=== PATIENT | female | born 1945 | race Caucasian/White ===

== ENCOUNTER → 2017-02-15 09:22 | Outpatient (CLI) | payer MEDICARE, MEDICAID ==
[2016-01-06 13:39] VITALS: BMI 31.6
[~2017-02-15 09:22] MED LIST: ALBUTEROL2.5 MG/3 M INH; BACLOFEN10 MG PO; CELEXA20 MG PO; CYCLOBENZAPRINE10 MG PO; DESERYL100 MG PO; FLUTICASONE PRO16 GM NASAL; HYDROCODONE-APA1 TAB PO; LEVAQUIN500 MG PO; LIPITOR20 MG PO; LYRICA100 MG PO; MUCINEX600 MG PO; PRILOSEC20 MG PO; PROAIR HFA8.5 GM INH; REQUIP4 MG PO; SINGULAIR10 MG PO; SYMBICORT 80-10.2 GM INH; TESSALON PERLE100 MG PO; TRAZODONE HCL50 MG PO; XANAX0.25 MG PO
== END | disposition home or self-care (01) ==
LOC: D.RAD 09:22
DX: R13.10 Dysphagia, unspecified (principal)

== ENCOUNTER 2017-02-18 14:58 | Observation (INO) | payer MEDICARE, MEDICAID ==
[~2017-02-18] VITALS: Ht 162.6 cm; Wt 88.9 kg
--- NOTE | ~2017-02-18 | OP ---
PATIENT NAME: LUI FISHER MEDICAL RECORD: [id number] :41 LOCATION:D.M2 D.2118 ADMISSION DATE:02/18/17 SURGEON: АЛЕКСАНДР YEUNG MD DATE OF OPERATION: 02/19/2017 PROCEDURE: Left heart catheterization, selective coronary angiography, right femoral artery approach. CATHETERS: A 5-Occitan sheath, 5/4 left and right Romain, 5/4 pig. The procedure was well tolerated. The patient returned to the peterson, sheath was removed. ExoSeal device placed. FINDINGS: Left ventriculography in the 30-degree WONG view. Normal wall motion, normal systolic function. CORONARY ANATOMY: LEFT MAIN: Left main is free of disease. LAD: Free of disease in the diagonal system. CIRCUMFLEX: Free of disease in the marginal system. RIGHT CORONARY ARTERY: Dominant artery, gives rise to PDA, free of disease. IMPRESSION: Normal systolic function, normal coronary anatomy, noncardiac cause of symptomology. TRANSINT:[id number] Voice Confirmation ID: [id number] DOCUMENT ID: [id number] АЛЕКСАНДР YEUNG MD CC: [id number] DICTATION DATE: 02/19/17 [address] MAKER: 02/19/171956 DIS IN 02/19/17 [facility] [address] [place] [address]
--- NOTE | ~2017-02-18 | HEMODYNAMI ---
PATIENT:LUI FISHER MEDICAL RECORD: [id number] : 41 [facility] [id number] ADMISSION DATE: 02/18/17 Generatedon:02/19/201710:06 Patient name: LUI FISHER Patient #: [id number] SSN: : 1945 Date of study: 02/19/2017 Page: Of Hemodynamic Procedure Report Patient Data Patient Demographics Procedure consent was obtained First Name: LUI Gender: Female Last Name: PHILLIP : 1945 Middle Initial: ANUP Age: 71 year(s) Patient #: [id number] Race: Unknown Additional ID: [id number] Contact details [address]: [address] [place] [address] State: [place] City: [place] Zip code: [address] Admission Admission Data Admission Date: 02/18/2017 Admission Time: 17:36 Room #: D.2118 Height (in.): 64 BSA: 1.94 (m2) Height (cm.): 162.56 BMI: 33.72 (kg/m2) Weight (lbs.): 196.43 Weight (kg.): 89.1 Lab Results Lab Result Date: 02/19/2017 Lab Result Time: 0:00 Biochemistry Name Units Result Min Max BUN mg/dl 9 --(*---)-- 7 18 Creatinine mg/dl 0.8 --(-*--)-- 0.6 1.3 CBC Name Units Result Min Max Hemoglobin g/dl 12.6 -*(----)-- 13.5 17.5 Procedure Procedure Types Cath Procedure Diagnostic Procedure [facility] w/Coronaries Miscellaneous Procedures Moderate Sedation up to 15 minutes Procedure Description Procedure Date Procedure Date: 02/19/2017 Procedure Start Time: 9:54 Procedure End Time: 10:05 Procedure Staff Name Function Judah Waters MD Performing Physician Yanelis Berkowitz RN Nurse Guy Quevedo RT Monitor Robert Comer RT Scrub Procedure Data Cath Procedure Fluoroscopy Diagnostic fluoroscopy Total fluoroscopy Time: 1.1 time: 1.1 min min Diagnostic fluoroscopy Total fluoroscopy dose: 352 dose: 352 mGy mGy Contrast Material Contrast Material Type Amount (ml) Isovue 300 57 Entry Location Entry Primary Successful Side Size Upsize Upsize Entry Closure Succes sful Closure Location (Fr) 1 (Fr) 2 (Fr) Remarks Device Remarks Femoral Right 5 Fr Exoseal artery Estimated blood loss: 10 ml Diagnostic catheters Device Type Used For End Catheter Placement Cordis 5Fr JL 4.0 Procedure Catheter (MP) Cordis 5Fr 3DRC Catheter Procedure (MP) Cordis 5Fr Pigtail Procedure Catheter (MP) Procedure Complications No complications Procedure Medications Medication Administration Route Dosage Oxygen NC 2 l/min Heparin Flush Bag added to field 2 bags (1000units/500ml NS) Lidocaine 2% added to field 20 Versed I.V. 1 mg Fentanyl I.V. 50 mcg Versed I.V. 0.5 mg Fentanyl I.V. 25 mcg Fentanyl I.V. 25 mcg Versed I.V. 0.5 mg Hemodynamics Rest BSA: 1.94 (m2) HGB: 12.6 (g/dl) O2 Consumption: Estimated: 191.25 (ml/min) O2 Co nsumption indexed: Estimated:98.58 (ml/min/m) Heart Rate: 89 (bpm) Pressure Samples Time Site Value (mmHg) Purpose Heart Use Rate(bpm) 9:56 AO 105/58(78) Snapshot 84 10:00 LV 113/-3,14 Snapshot 83 10:01 AO 110/58(81) Pullback 84 10:01 LV 79/14,22 Pullback 84 Gradients Valve Time Site 1 Site 2 Mean SEP/DFP Peak To Heart Use (mmHg) (sec/min) Peak Rate (mmHg) (bpm) Aortic 10:01 LV AO 0 84 79/14,22 110/58(81) Calculations Valve P-P Mean Valve Index Valve Source Name Gradient Area Flow (cm2) Aortic 0 0 Snapshots Pre Cath Intra NCS Post Cath Vital Signs Time Heart Resp SPO2 etCO2 [id number] NIBP (mmHg) Rhythm Pain Sedation Rate (ipm) (%) (mmHg) (mmHg) Status Level (bpm) 9:41:58 91 23 97 0 0 142/61(106) NSR 0 (11) 10(A) , No pain 9:46:12 88 23 97 0 0 139/66(105) NSR 0 (11) 10(A) , No pain 9:50:32 85 20 96 0 0 127/62(91) NSR 0 (11) 10(A) , No pain 9:54:53 85 16 94 0 0 116/64(99) NSR 0 (11) 10(A) , No pain 9:59:06 84 19 97 0 0 123/62(86) NSR 0 (11) 10(A) , No pain 10:03:18 83 16 95 0 0 111/63(83) NSR 0 (11) 10(A) , No pain Medications Time Medication Route Dose Verified Delivered Reason Notes Effect iveness by by 9:44:41 Oxygen NC 2 Judah Yanelis Per l/min NyssaSuraj Berkowitz RN physician 9:45:43 Heparin Flush added 2 Judah Judah used for Bag to bags [facility] procedure (1000units/500ml field MD ADRIAN NS) 9:45:52 Lidocaine 2% added 20ml Judah Judah used for to vial [facility] procedure field MD ADRIAN 9:46:01 Versed I.V. 1 mg Judah Yanelis for JtLoren Berkowitz RN sedation 9:46:07 Fentanyl I.V. 50 Judah Yanelis for mcg JtSuraj Berkowitz RN sedation 9:49:06 Versed I.V. 0.5 Judah Yanelis for mg [facility] Suraj Berkowitz RN sedation 9:49:11 Fentanyl I.V. 25 Judah Yanelis for mcg NyssaSuraj Berkowitz RN sedation 9:53:03 Fentanyl I.V. 25 Judah Yanelis for mcg NyssaSuraj Berkowitz RN sedation 9:57:14 Versed I.V. 0.5 Judah Yanelis for mg Nyssa Sho LOJA sedation Procedure Log Time Note 9:00:07 Robert WILSON(R) sent for patient. Start room use. 9:14:16 Time tracking: Regular hours 9:14:20 Plan of Care:Hemodynamics will remain stable., Cardiac rhythm will remain stable., Comfort level will be maintained., Respiratory function will remain adequate., Patient/ family verbilizes understanding of procedure., Procedure tolerated without complication., Recovers from procedure without complications.. 9:25:29 Patient Height : 64 cm 9:25:36 Patient Weight : 196.43 kg 9:27:05 Lab Result : Hemoglobin 12.6 g/dl 9:27:05 Lab Result : Creatinine 0.8 mg/dl 9:27:05 Lab Result : BUN 9 mg/dl 9:31:28 Patient received from PCU to CCL 1 Alert and oriented. Tansferred to table in Supine position. 9:31:30 Warm blankets applied, and saad hugger turned on for patient comfort. 9:31:30 Correct patient and procedure confirmed by team. 9:31:31 Signed procedure consent form obtained from patient. 9:31:32 ECG and BP/O2 sat monitors applied to patient. 9:40:44 Vital chart was started 9:40:45 Baseline sample Acquired. 9:40:49 Rhythm: sinus rhythm 9:40:50 Full Disclosure recording started 9:41:02 H&P Date Dictated: 02/19/2017 Within 30 days and on chart.. 9:41:03 Pre-procedure instructions explained to patient. 9:41:04 Pre-op teaching completed and patient verbalized understanding. 9:41:06 Family in waiting room. 9:41:07 Patient NPO since Midnight. 9:41:09 Is the patient allergic to Iodine/contrast media? No. 9:41:12 Is patient on blood thinner?No 9:41:14 Patient diabetic? No. 9:41:17 Patient not . Patient is over age 55. 9:41:19 Previous problem with sedation/anesthesia? No ? 9:41:20 Snore? Yes 9:41:21 Sleep apnea? No 9:41:22 Deviated septum? No 9:41:23 Opens mouth fully? Yes 9:41:24 Sticks out tongue? Yes 9:41:28 Airway obstruction? Yes COPD 9:41:33 Dentures? Yes OUT 9:41:37 Physician opted for femoral access. 9:41:37 Pre procedure: right dorsailis pedis pulse 1+ Palpable, but thready & weak; easily obliterated 9:41:39 Patient pain scale 0/10 ?. 9:41:43 IV patent on arrival in left forearm with 0.9% NaCl at KVO. 9:41:45 Lab results completed and on chart. 9:41:48 Pt's abdomen was taped back for groin access. 9:41:49 Right groin area was prepped with chlora-prep and draped in sterile fashion 9:41:50 Alarms reviewed by R. N. 9:41:51 Sharps counted by scrub and verified by R.N. 9:43:43 Use device set Femoral Dx 9:43:46 Tegaderm 4 x 4 opened to sterile field. 9:43:47 Acist Hand Control opened to sterile field. 9:43:48 Acist Manifold opened to sterile field. 9:43:50 Acist Syringe opened to sterile field. 9:43:50 Bag Decanter opened to sterile field. 9:43:51 Medline Cath Pack opened to sterile field. 9:43:51 Terumo 5Fr Sanderson Sheath opened to sterile field. 9:43:52 St Phillip 260cm J .035 wire opened to sterile field. 9:43:53 Diagnostic Infinity 5Fr Multipack catheter opened to sterile field. 9:44:41 Oxygen 2 l/min NC was administered by Yanelis Berkowitz RN; Per physician; 9:45:43 Heparin Flush Bag (1000units/500ml NS) 2 bags added to field was administered by Judah Waters MD; used for procedure; 9:45:45 --------ALL STOP TIME OUT------ 9:45:46 Final Timeout: patient, procedure, and site verified with staff and physician. All members of the team are in agreement. 9:45:48 Right groin site verified by team. 9:45:51 Physical assessment completed. ASA score P 2 - A patient with mild systemic disease as per Judah Waters MD. 9:45:52 Lidocaine 2% 20ml vial added to field was administered by Judah Waters MD; used for procedure; 9:45:55 Sedation plan: IV Moderate Sedation Versed, Fentanyl 9:46:01 Versed 1 mg I.V. was administered by Yanelis Berkowitz RN; for sedation; 9:46:07 Fentanyl 50 mcg I.V. was administered by Yanelis Berkowitz RN; for sedation; 9:49:06 Versed 0.5 mg I.V. was administered by Yanelis Berkowitz RN; for sedation; 9:49:11 Fentanyl 25 mcg I.V. was administered by Yanelis Berkowitz RN; for sedation; 9:53:03 Fentanyl 25 mcg I.V. was administered by Yanelis Berkowitz RN; for sedation; 9:54:16 Procedure started. 9:54:23 Local anesthetic to right femoral artery with Lidocaine 2% by Judah Waters MD.INITIAL ACCESS ONLY 9:54:26 Zero performed for pressure channel P1 9:54:44 A 5 Fr sheath was inserted into the Right Femoral artery 9:56:02 A Cordis 5Fr JL 4.0 Catheter (MP) was advanced over the wire and used for Procedure. 9:57:11 LCA angiography performed. 9:57:14 Versed 0.5 mg I.V. was administered by Yanelis Berkowitz RN; for sedation; 9:57:39 Catheter removed. 9:57:45 A Cordis 5Fr 3DRC Catheter (MP) was advanced over the wire and used for Procedure. 9:58:52 RCA angiography performed. 9:58:53 Catheter removed. 9:59:02 A Cordis 5Fr Pigtail Catheter (MP) was advanced over the wire and used for Procedure. 10:00:32 LV angiography performed. 10:00:33 LV gram done using WONG 10:00:45 EF : 55 % 10:00:47 LV hemodynamics recorded. 10:00:56 Injector settings: Ml/sec: 10, Volume: 20, 10:01:23 Catheter removed. 10:01:34 Cordis 5Fr Exoseal opened to sterile field. 10:01:43 Sheath removed intact; hemostasis achieved with Exoseal to the Right Femoral artery. 10:01:46 Procedure ended.(Physican Out) 10:01:58 Fluoroscopy time 01.10 minutes. 10:02:02 Fluoroscopy dose: 352 mGy 10:02:02 Flurop Dose total: 352 10:02:08 Contrast amount:Isovue 300 57ml. 10:02:11 Sharps counted by scrub and verified by R.N. 10:02:14 Insertion/operative site no bleeding no hematoma. 10:02:17 Post-op/insertion site Right Femoral artery dressed using a 4 x 4 and Tegaderm. 10:02:18 Post Procedure Pulses reassessed and unchanged 10:02:21 Post-procedure physical assessment completed. ASA score P 2 - A patient with mild systemic disease as per Judah Waters MD. 10:02:24 Post procedure rhythm: unchanged. 10:02:27 Estimated blood loss: 10 ml 10:02:29 Post procedure instruction explained to patient.Patient verbalizes understanding. 10:02:30 Patient needs reinforcement of post procedure teaching. 10:02:37 Procedure and supply charges have been captured, reviewed, submitted and are correct. 10:02:45 Procedure Complication : No complications 10:05:19 Vital chart was stopped 10:05:20 See physician's report for complete and final results. 10:05:24 Report given to PCU. 10:05:27 Patient transfered to PCU with Bed. 10:05:30 Procedure ended. 10:05:30 Full Disclosure recording stopped 10:05:33 End room use (Document Last) Device Usage Item Name Manufacture Quantity Catalog Hospital Part Current Minimal Lo t# / Number Charge Number Stock Stock Serial# Code Tegaderm 4 1 [id number] [id number] [id number] 5 x 4 Acist Hand Acist 1 98185 936988 983711 [id number] 5 Control [employer] Inc Acist Acist 1 18939 867397 827965 352899 5 Manifold Medical Systems Inc Acist Acist 1 69666 219512 098151 395676 20 Syringe Medical Systems Inc Bag Microtek 1 2002S 772282 66246 934146 5 Decanter Medical Inc. Medline Cardinal 1 [id number] 583681 11909 182651 5 Cath Pack Health Terumo 5Fr Terumo 1 [id number] 917731 549089 658558 [address] Phillip 1 846098 771546 108703 403455 30 260cm J .035 wire Diagnostic Cardinal 1 [id number] 432242 64322 348480 30 Infinity Health 5Fr Multipack catheter Cordis 5Fr Cardinal 1 612606 5 JL 4.0 Health Catheter (MP) Cordis 5Fr Cardinal 1 864699 5 3DRC Health Catheter (MP) Cordis 5Fr Cardinal 1 473084 5 Pigtail Health Catheter (MP) Cordis 5Fr Cardinal 1 EX500 452092 335074 597213 10 Affinegy Signature Audit [place] Stage Time Signature Unsigned Intra-Procedure 02/19/2017 Guy Quevedo 10:06:26 AM RT(R) Signatures Monitor : Guy Quevedo RT Signature : Date : Time : [facility] [address] [place] [address]
[2017-02-18 15:51] LABS: BASOPHILS 0.4 % (0-2); EOSINOPHILS 1.8 % (0-7); HEMATOCRIT 39.3 % (36.0-48.0); HEMOGLOBIN 12.6 g/dL (12-16); IMMATURE GRANULOCYTES 0.4 % (0-5); LYMPHOCYTES 40.1 % (15-50); MCH 25.8 pg (26.0-34.0); MCHC 32.1 g/dL (31.0-37.0); MCV 80.4 fL (80.0-100.0); MEAN PLATELET VOLUME 9.7 fL (7.4-10.4); MONOCYTES 7.6 % (2-11); NEUTROPHILS 49.7 % (40-80); PLATELET COUNT 278 10x3/uL (130-400); RBC 4.89 10x6/uL (4.00-5.40); RDW 15.1 % (11.5-14.5); WBC 7.9 10x3/uL (4.8-10.8)
[2017-02-18 16:05] LABS: ALBUMIN 3.8 g/dL (3.4-5.0); ALKALINE PHOSPHATASE 93 U/L (46-116); ALT (SGPT) 23 U/L (10-68); CALC OSMOLALITY 279 mosm/kg (275-300); CALCIUM 9.3 mg/dL (8.5-10.1); CARBON DIOXIDE 29.4 mmol/L (21.0-32.0); CHLORIDE - SERUM 104 mmol/L (98-107); CREATININE - SERUM 0.8 mg/dL (0.6-1.3); GLUCOSE 91 mg/dL (74-106); PROTEIN - SERUM 7.7 g/dL (6.4-8.2); SODIUM 141 mmol/L (136-145); UREA NITROGEN 9 mg/dL (7-18); eGFR NON AFRICAN AMERICAN 74 mL/min (90-120)
[2017-02-18 16:15] LABS: CHOLESTEROL, TOTAL 215 mg/dL (0-200); CKMB 0.1 U/L (0.0-3.6); CREATINE KINASE 57 UL (21-215); HDL CHOLESTEROL 72 mg/dL (32-96); LDL CHOLESTEROL 125 mg/dL (0-100); LDL-HDL RATIO 1.7 ratio (1.5-3.5); TRIGLYCERIDE 90 mg/dL (30-200)
[2017-02-18 16:17] LABS: TROPONIN-I < 0.017 ng/mL (0.000-0.060)
--- NOTE | 2017-02-18 18:00 | NUR ---
RECIVED FROM ER TO ROOM 2118 PER WC. MONITOR SHOWS SR RATE 81. RN FOR ADMIT ASSESSMENT.
[2017-02-18] MEDS ORDERED: KLONOPIN1 MG PO (18:03)
[2017-02-18 18:12] VITALS: BP 139/63; BMI 34.2
[2017-02-18] MEDS ORDERED: DESERYL100 MG PO (19:39)
--- NOTE | 2017-02-18 19:44 | NUR ---
INITIAL ROUNDS COMPLETED AT 1910 HRS. PT DENIED ANY DISCOMFORT. ASSESSMENT COMPLETED [id number] HRS. VSS. SR PER CM HR 93. O2 2LNC. IV TO LFA SL. PT HAD C/O L NECK AND JAW PAIN AT 1935 HRS. NITRO 0.4MG SL GINVE. PT STATED PAIN BEGAN EASING SOON AFTER. WILL CONTINUE TO MONITOR. SR UP X2, CALL LIGHT WITHIN REACH.
[2017-02-18 21:33] VITALS: BP 110/47
--- NOTE | 2017-02-18 22:20 | NUR ---
PM MEDS GIVEN. PT DENIED ANYU DISCOMFORT. WILL CONTINUE TO MONITOR.
[2017-02-18 23:00] VITALS: BP 114/68
[2017-02-18 23:22] LABS: CREATINE KINASE 57 UL (21-215)
[2017-02-18 23:24] LABS: TROPONIN-I < 0.017 ng/mL (0.000-0.060)
--- NOTE | 2017-02-18 23:52 | NUR ---
EKG DONE. PT DENIES ANY DISCOMFORT. WILL CONTINUE TO MONITOR.
--- NOTE | 2017-02-19 02:13 | NUR ---
PT AWAKE; DENIES ANY DISCOMFORT. WILL CONTINUE TO MONITOR.
--- NOTE | 2017-02-19 04:49 | NUR ---
PT RESTING WITH EYES CLOSED. RESP EVEN AND REGULAR SR UP X2, CALL LIGHT WITHIN REACH.
[2017-02-19 05:27] LABS: CREATINE KINASE 48 UL (21-215)
[2017-02-19 05:31] LABS: TROPONIN-I < 0.017 ng/mL (0.000-0.060)
--- NOTE | 2017-02-19 06:09 | NUR ---
VSS THROUGHOUT NIGHT. PT HAD DENIED ANY CP SINCE NITRO AT SHIFT CHANGE. NEEDS MET; WILL CONTINUE TO MONITOR.
[2017-02-19 06:37] VITALS: BP 102/59
--- NOTE | 2017-02-19 07:54 | NUR ---
ASSESSMENT COMPLETED. TELEMERTY SHOWS SR AT 80. LUNGS CLEAR.. DENIES ANY PAIN. CALL LIGHT IN REACH WITH SR UP. WILL MONITOR
[2017-02-19 08:22] VITALS: BP 168/66
[2017-02-19 09:04] LABS: BASOPHILS 0.4 % (0-2); EOSINOPHILS 2.4 % (0-7); HEMATOCRIT 36.2 % (36.0-48.0); HEMOGLOBIN 11.3 g/dL (12-16); IMMATURE GRANULOCYTES 0.3 % (0-5); LYMPHOCYTES 34.3 % (15-50); MCH 25.6 pg (26.0-34.0); MCHC 31.2 g/dL (31.0-37.0); MCV 81.9 fL (80.0-100.0); MEAN PLATELET VOLUME 10.7 fL (7.4-10.4); MONOCYTES 7.3 % (2-11); NEUTROPHILS 55.3 % (40-80); PLATELET COUNT 243 10x3/uL (130-400); RBC 4.42 10x6/uL (4.00-5.40); RDW 15.2 % (11.5-14.5)
[2017-02-19 09:08] LABS: ANION GAP 11.8 mmol/L (8-16); CALCIUM 8.9 mg/dL (8.5-10.1); CARBON DIOXIDE 29.1 mmol/L (21.0-32.0); CREATININE - SERUM 0.9 mg/dL (0.6-1.3); POTASSIUM - SERUM 3.9 mmol/L (3.5-5.1)
--- NOTE | 2017-02-19 09:34 | NUR ---
PT TO BLANKET FOLDER PER BED
--- NOTE | 2017-02-19 10:37 | NUR ---
BACK FROM VEHICLE TRIMMER. RIGHT GROIN SOFT WITH DRSG DRY AND INTACT. PPP. VS STABLE. TELEMERTY SHOWS SR. V/S STABLE. CALL LIGHT IN REACH WITH SR UP
[2017-02-19 10:54] VITALS: Ht 162.6 cm; Wt 88.9 kg
--- NOTE | 2017-02-19 12:18 | NUR ---
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 SLEEPING AT PRESENT. WILL CONTINUE TO MONITOR.
--- NOTE | 2017-02-19 16:06 | NUR ---
PT DISCHARGED. INSTUCTIONS GIVEN TO PT AND FAMILY. TO PRIVATE CAR PER WHEEL CHAIR
== END 2017-02-19 16:08 | disposition home or self-care (01) ==
LOC: D.ER 14:58 → D.M2 17:36 → OBSVTIME 17:37 → D.M2 02-19 16:08
PROVIDERS: Family Medicine; Internal Medicine Interventional Cardiology; ADMIT Family Medicine
DX: R07.89 Other chest pain (principal); I10 Essential (primary) hypertension; J45.909 Unspecified asthma, uncomplicated; G25.81 Restless legs syndrome; K21.9 Gastro-esophageal reflux disease without esophagitis

== ENCOUNTER → 2017-03-06 07:20 | Outpatient (CLI) | payer MEDICARE, MEDICAID ==
[2017-02-19 10:54] VITALS: BMI 33.6
[~2017-03-06 07:20] MED LIST changes: +KLONOPIN1 MG PO
== END | disposition home or self-care (01) ==
LOC: D.RAD 07:20
DX: J45.991 Cough variant asthma (principal)

== ENCOUNTER 2017-04-12 15:30 | Emergency (ER) | payer MEDICARE, MEDICAID ==
[2017-02-19 10:54] VITALS: BMI 33.6
== END 2017-04-12 18:34 | disposition home or self-care (01) ==
LOC: D.ER 15:30
DX: S50.02XA Contusion of left elbow, initial encounter (principal); S40.012A Contusion of left shoulder, initial encounter; W19.XXXA Unspecified fall, initial encounter; Y93.89 Activity, other specified; Y92.89 Other specified places as the place of occurrence of the external cause; S39.012A Strain of muscle, fascia and tendon of lower back, initial encounter; S16.1XXA Strain of muscle, fascia and tendon at neck level, initial encounter; I50.9 Heart failure, unspecified; J44.9 Chronic obstructive pulmonary disease, unspecified

== ENCOUNTER → 2017-08-13 08:16 | Outpatient (CLI) | payer MEDICARE, MEDICAID ==
[2017-02-19 10:54] VITALS: BMI 33.6
== END | disposition home or self-care (01) ==
LOC: D.RT 08:16
DX: J45.991 Cough variant asthma (principal)

== ENCOUNTER → 2017-10-23 12:51 | Outpatient (CLI) | payer MEDICARE, MEDICAID ==
[2017-02-19 10:54] VITALS: BMI 33.6
== END | disposition home or self-care (01) ==
LOC: D.MRI 12:51
DX: M54.16 Radiculopathy, lumbar region (principal)

== ENCOUNTER 2018-03-29 23:48 | Emergency (ER) | payer MEDICARE, MEDICAID ==
[~2018-03-29] VITALS: Ht 162.6 cm; Wt 81.8 kg
[2018-03-29 23:50] VITALS: Ht 162.6 cm; Wt 81.8 kg
[2018-03-29] MEDS ORDERED: SINGULAIR10 MG PO (23:56)
[2018-03-29] MEDS ORDERED: ZANAFLEX4 MG PO (23:57)
[2018-03-29] MEDS ORDERED: CYCLOBENZAPRINE5 MG PO (23:57)
[2018-03-29] MEDS ORDERED: HYDROXYZINE HCL10 MG PO (23:58)
[2018-03-29] MEDS ORDERED: SINEMET CR 50-1 EACH PO (23:58)
[2018-03-29] MEDS ORDERED: HYSINGLA ER20 MG PO (23:59)
[2018-03-30 00:21] LABS: HEMATOCRIT 35.7 % (36.0-48.0); HEMOGLOBIN 11.6 g/dL (12-16); LYMPHOCYTES 21.1 % (15-50); MCH 25.2 pg (26.0-34.0); MCHC 32.5 g/dL (31.0-37.0); MCV 77.6 fL (80.0-100.0); NEUTROPHILS 72.4 % (40-80); PLATELET COUNT 281 10x3/uL (130-400); RDW 14.5 % (11.5-14.5); WBC 7.8 10x3/uL (4.8-10.8)
[2018-03-30 00:37] LABS: APTT 30.9 SECONDS (22.8-39.4)
[2018-03-30 00:38] LABS: D-DIMER-QUANTITATIVE 0.83 ug/mLFEU (0.20-0.54); INR 0.93 (0.85-1.17); PROTIME 12.1 SECONDS (11.6-15.0)
[2018-03-30 00:41] LABS: ALKALINE PHOSPHATASE 113 U/L (46-116); ALT (SGPT) 21 U/L (10-68); BILIRUBIN - TOTAL 0.14 mg/dL (0.2-1.3); CALC OSMOLALITY 282 mosm/kg (275-300); CALCIUM 8.6 mg/dL (8.5-10.1); CARBON DIOXIDE 28.6 mmol/L (21.0-32.0); CHLORIDE - SERUM 105 mmol/L (98-107); CREATININE - SERUM 0.8 mg/dL (0.6-1.3); GLUCOSE 109 mg/dL (74-106); POTASSIUM - SERUM 3.6 mmol/L (3.5-5.1); PROTEIN - SERUM 6.8 g/dL (6.4-8.2); SODIUM 141 mmol/L (136-145); UREA NITROGEN 14 mg/dL (7-18); eGFR NON AFRICAN AMERICAN 74 mL/min (90-120)
[2018-03-30 00:44] LABS: CREATINE KINASE 86 UL (21-215); MAGNESIUM - SERUM 2.3 mg/dL (1.8-2.4)
[2018-03-30 00:45] LABS: TROPONIN-I < 0.017 ng/mL (0.000-0.060)
[2018-03-30] MEDS ORDERED: ZPAK PO (04:07)
[2018-03-30 04:30] VITALS: BP 123/64
== END 2018-03-30 04:30 | disposition home or self-care (01) ==
LOC: D.ER 23:48
PROVIDERS: Family Medicine
DX: S22.32XA Fracture of one rib, left side, initial encounter for closed fracture (principal); X58.XXXA Exposure to other specified factors, initial encounter; Y93.9 Activity, unspecified; Y92.9 Unspecified place or not applicable; R91.8 Other nonspecific abnormal finding of lung field; M79.1 Myalgia; J44.9 Chronic obstructive pulmonary disease, unspecified

== ENCOUNTER 2018-04-17 19:05 | Emergency (ER) | payer MEDICARE, MEDICAID ==
[~2018-04-17] VITALS: Ht 162.6 cm; Wt 81.8 kg
[~2018-04-17 19:05] MED LIST changes: +CYCLOBENZAPRINE5 MG PO; +HYDROXYZINE HCL10 MG PO; +HYSINGLA ER20 MG PO; +SINEMET CR 50-1 EACH PO; +ZANAFLEX4 MG PO; +ZPAK PO
[2018-04-17 19:07] VITALS: Ht 162.6 cm; Wt 81.8 kg
[2018-04-17] MEDS ORDERED: RESTORIL22.5 MG PO (19:14)
[2018-04-17 20:14] LABS: BASOPHILS 0.1 % (0-2); EOSINOPHILS 0.6 % (0-7); HEMATOCRIT 41.1 % (36.0-48.0); HEMOGLOBIN 13.3 g/dL (12-16); IMMATURE GRANULOCYTES 0.9 % (0-5); LYMPHOCYTES 7.5 % (15-50); MCH 25.3 pg (26.0-34.0); MCHC 32.4 g/dL (31.0-37.0); MCV 78.1 fL (80.0-100.0); MEAN PLATELET VOLUME 9.7 fL (7.4-10.4); MONOCYTES 4.4 % (2-11); NEUTROPHILS 86.5 % (40-80); PLATELET COUNT 280 10x3/uL (130-400); RBC 5.26 10x6/uL (4.00-5.40); WBC 13.8 10x3/uL (4.8-10.8)
[2018-04-17 20:28] LABS: ALBUMIN 3.7 g/dL (3.4-5.0); ANION GAP 12.5 mmol/L (8-16); BILIRUBIN - TOTAL 0.31 mg/dL (0.2-1.3); CALCIUM 9.1 mg/dL (8.5-10.1); CARBON DIOXIDE 29.9 mmol/L (21.0-32.0); CREATININE - SERUM 0.8 mg/dL (0.6-1.3); POTASSIUM - SERUM 3.4 mmol/L (3.5-5.1); PROTEIN - SERUM 7.5 g/dL (6.4-8.2)
[2018-04-17 21:16] LABS: UDS - AMPHET NEGATIVE QUAL (NEGATIVE); UDS - BARB NEGATIVE QUAL (NEGATIVE); UDS - BENZO POSITIVE QUAL (NEGATIVE); UDS - COCAINE NEGATIVE QUAL (NEGATIVE); UDS - OPIATE POSITIVE QUAL (NEGATIVE); UDS - PCP NEGATIVE QUAL (NEGATIVE); UDS - THC NEGATIVE QUAL (NEGATIVE)
[2018-04-17 21:48] LABS: APPEARANCE CLEAR (CLEAR); BILIRUBIN NEGATIVE (NEGATIVE); COLOR YELLOW (YELLOW); GLUCOSE NEGATIVE (NEGATIVE); KETONE NEGATIVE (NEGATIVE); NITRITE NEGATIVE (NEGATIVE); PROTEIN TRACE mg/dL (NEGATIVE); SPECIFIC GRAVITY 1.015 (1.005-1.020); UROBILINOGEN NORMAL (NORMAL)
[2018-04-17 21:49] LABS: BACTERIA FEW /hpf (NONE SEEN); EPITHELIAL CELLS 0-5 /hpf (0-5); RED CELLS - URINE OCC /hpf (0-5); WHITE CELLS - URINE 0-5 /hpf (0-5)
[2018-04-18 00:08] VITALS: BP 132/84
== END 2018-04-18 00:08 | disposition other institution (70) ==
LOC: D.ER 19:05
PROVIDERS: Emergency Medicine
DX: S16.1XXA Strain of muscle, fascia and tendon at neck level, initial encounter (principal); V49.9XXA Car occupant (driver) (passenger) injured in unspecified traffic accident, initial encounter; Y93.89 Activity, other specified; Y92.410 Unspecified street and highway as the place of occurrence of the external cause; S20.219A Contusion of unspecified front wall of thorax, initial encounter; S27.329A Contusion of lung, unspecified, initial encounter; S22.059A Unspecified fracture of T5-T6 vertebra, initial encounter for closed fracture; S22.089A Unspecified fracture of T11-T12 vertebra, initial encounter for closed fracture; S22.049A Unspecified fracture of fourth thoracic vertebra, initial encounter for closed fracture; S22.078A Other fracture of T9-T10 vertebra, initial encounter for closed fracture; S32.029A Unspecified fracture of second lumbar vertebra, initial encounter for closed fracture; F32.9 Major depressive disorder, single episode, unspecified; J93.9 Pneumothorax, unspecified; S22.42XA Multiple fractures of ribs, left side, initial encounter for closed fracture; R45.851 Suicidal ideations; R07.89 Other chest pain; M54.6 Pain in thoracic spine; M25.561 Pain in right knee; I10 Essential (primary) hypertension

== ENCOUNTER → 2019-01-23 09:43 | Outpatient (CLI) | payer MEDICARE, MEDICAID ==
[2018-04-17 19:07] VITALS: BMI 30.9
[~2019-01-23 09:43] MED LIST changes: +RESTORIL22.5 MG PO
== END | disposition home or self-care (01) ==
LOC: D.HCCARDIO 09:30
PROVIDERS: ATTEND Internal Medicine Cardiovascular Disease
DX: I25.10 Atherosclerotic heart disease of native coronary artery without angina pectoris (principal)

== ENCOUNTER 2019-02-10 10:44 | Outpatient (CLI) | payer MEDICARE, MEDICAID | END 2019-02-10 16:50 | disposition home or self-care (01) | LOC: D.CATH 10:44 | DX: I25.10 Atherosclerotic heart disease of native coronary artery without angina pectoris (principal); R07.9 Chest pain, unspecified; I10 Essential (primary) hypertension; R94.31 Abnormal electrocardiogram [ECG] [EKG]; R01.1 Cardiac murmur, unspecified; R09.89 Other specified symptoms and signs involving the circulatory and respiratory systems ==

== ENCOUNTER 2019-04-04 16:24 | Emergency (ER) | payer MEDICARE, MEDICAID ==
[~2019-04-04] VITALS: Ht 162.6 cm; Wt 81.8 kg
[~2019-04-04 16:24] MED LIST changes: +FUROSEMIDE20 MG PO
[2019-04-04 16:28] VITALS: Ht 162.6 cm; Wt 81.8 kg
[2019-04-04] MEDS ORDERED: HYDROCODON-ACE1 EA10 PO (20:32)
[2019-04-04 20:50] VITALS: BP 108/58
== END 2019-04-04 20:50 | disposition home or self-care (01) ==
LOC: D.ER 16:24
DX: S52.501A Unspecified fracture of the lower end of right radius, initial encounter for closed fracture (principal); W19.XXXA Unspecified fall, initial encounter; R51 Headache; M25.551 Pain in right hip; M25.561 Pain in right knee; M25.511 Pain in right shoulder; Z86.73 Personal history of transient ischemic attack (TIA), and cerebral infarction without residual deficits; I10 Essential (primary) hypertension

== ENCOUNTER 2019-04-07 12:17 | Day surgery (SDC) | payer MEDICARE, MEDICAID ==
[~2019-04-07] VITALS: Ht 162.6 cm; Wt 83.0 kg
[~2019-04-07 12:17] MED LIST changes: +HYDROCODON-ACE1 EA10 PO
[2019-04-07 13:23] LABS: BASOPHILS 0.5 % (0-2); HEMATOCRIT 38.9 % (36.0-48.0); HEMOGLOBIN 12.5 g/dL (12-16); IMMATURE GRANULOCYTES 0.1 % (0-5); LYMPHOCYTES 21.7 % (15-50); MCH 26.4 pg (26.0-34.0); MCHC 32.1 g/dL (31.0-37.0); MCV 82.1 fL (80.0-100.0); MEAN PLATELET VOLUME 9.5 fL (7.4-10.4); MONOCYTES 7.2 % (2-11); NEUTROPHILS 68.5 % (40-80); PLATELET COUNT 270 10x3/uL (130-400); RBC 4.74 10x6/uL (4.00-5.40); RDW 15.6 % (11.5-14.5); WBC 8.5 10x3/uL (4.8-10.8)
[2019-04-07 13:26] VITALS: BP 135/73; Ht 162.6 cm; Wt 83.0 kg
[2019-04-07 13:31] LABS: ANION GAP 8.8 mmol/L (8-16); CALCIUM 9.5 mg/dL (8.5-10.1); CARBON DIOXIDE 33.8 mmol/L (21.0-32.0); CREATININE - SERUM 0.8 mg/dL (0.6-1.3); POTASSIUM - SERUM 3.6 mmol/L (3.5-5.1)
--- NOTE | 2019-04-07 18:00 | NUR ---
PT VOICES THAT SHE WEARS HOME OXYGEN AT NIGHT 3L
--- NOTE | 2019-04-07 19:17 | NUR ---
DC INSTRUCTIONS GIVEN TO PT/FAMILY. STATE UNDERSTANDING. DC'D IV CATH FULLY INTACT.
--- NOTE | 2019-04-07 19:31 | NUR ---
PT LEFT UNIT VIA WC AT 192
== END 2019-04-07 19:28 | disposition home or self-care (01) ==
LOC: D.OPS 12:17
PROVIDERS: ATTEND Orthopaedic Surgery
DX: S52.551A Other extraarticular fracture of lower end of right radius, initial encounter for closed fracture (principal); X58.XXXA Exposure to other specified factors, initial encounter; Z01.812 Encounter for preprocedural laboratory examination

== ENCOUNTER 2019-04-22 16:58 | Emergency (ER) | payer MEDICARE, MEDICAID ==
[~2019-04-22] VITALS: Ht 162.6 cm; Wt 81.8 kg
[2019-04-22 17:14] VITALS: Ht 162.6 cm; Wt 81.8 kg
[2019-04-22 18:31] LABS: BASOPHILS 0.6 % (0-2); EOSINOPHILS 3.4 % (0-7); HEMATOCRIT 29.1 % (36.0-48.0); HEMOGLOBIN 9.3 g/dL (12-16); IMMATURE GRANULOCYTES 0.4 % (0-5); LYMPHOCYTES 33.9 % (15-50); MCH 25.5 pg (26.0-34.0); MCV 79.9 fL (80.0-100.0); MEAN PLATELET VOLUME 9.7 fL (7.4-10.4); MONOCYTES 8.6 % (2-11); NEUTROPHILS 53.1 % (40-80); PLATELET COUNT 234 10x3/uL (130-400); RBC 3.64 10x6/uL (4.00-5.40); RDW 15.1 % (11.5-14.5)
[2019-04-22 18:42] LABS: APPEARANCE TURBID (CLEAR); COLOR RED (YELLOW)
[2019-04-22 18:43] LABS: EPITHELIAL CELLS 0-5 /hpf (0-5); RED CELLS - URINE >50 /hpf (0-5); WHITE CELLS - URINE 0-5 /hpf (0-5)
[2019-04-22 18:55] LABS: ALBUMIN 2.5 g/dL (3.4-5.0); ANION GAP 8.6 mmol/L (8-16); BILIRUBIN - TOTAL 0.14 mg/dL (0.2-1.3); CARBON DIOXIDE 30.8 mmol/L (21.0-32.0); CREATININE - SERUM 1.1 mg/dL (0.6-1.3); POTASSIUM - SERUM 4.4 mmol/L (3.5-5.1); PROTEIN - SERUM 5.5 g/dL (6.4-8.2)
[2019-04-22 19:04] LABS: MAGNESIUM - SERUM 1.8 mg/dL (1.8-2.4); THYROID STIMULATING HORMONE 1.28 uIU/mL (0.36-3.74)
[2019-04-22 21:25] VITALS: BP 119/53
== END 2019-04-22 21:25 | disposition home or self-care (01) ==
LOC: D.ER 16:58
PROVIDERS: Family Medicine
DX: R53.1 Weakness (principal); R10.9 Unspecified abdominal pain; Z86.73 Personal history of transient ischemic attack (TIA), and cerebral infarction without residual deficits

== ENCOUNTER 2019-04-29 18:16 | Observation (INO) | payer MEDICARE, MEDICAID ==
[~2019-04-29] VITALS: Ht 162.6 cm; Wt 81.8 kg
--- NOTE | 2019-04-29 11:50 | NUR ---
RECIEVED REPORT FROM RODRIGO PERRY. INITIAL ASSESSMENT COMPLETED. PT ARRIVED ON STRETCHER, INITIAL VSS, AAOX4, NO S/S OF DISTRESS. R.WRIST BRACE INTACT, BRUISES, SCANS AND SORES TO LLE. L. UPPER ARM, SKIN TEAR. DRESSING C/D/I. O2 @ 2L. PT STATES THATS ABOUT THE SAME AMOUNT SHE USES AT HOME. BRUISES TO LEFT EYE. BOTH EYES APPEARS EDEMATOUS. PT IS A GOOD HX. PT HAS A BRUISE TO LEFT KNEE, DRESSING INTACT, PT C/O OF PAIN ON SITE. NORCO-10 GIVEN. BEDSIDE COMODE @ BEDSIDE. PT DENIES ANY FURTHER NEEDS AT THIS TIME. WILL CPOC. CL WITHIN REACH, BED IN LOW, SR UP X2.
[2019-04-29] MEDS ORDERED: ROPINIROLE HCL2 MG PO ×2 (18:53→18:54)
--- NOTE | 2019-04-29 19:23 | NUR ---
ATTEMPTED TO CONTACT PT , NUMBER DISCONNECTED.
[2019-04-29 19:37] LABS: BASOPHILS 0 % (0-2); EOSINOPHILS 0.8 % (0-7); HEMATOCRIT 37.3 % (36.0-48.0); HEMOGLOBIN 12.8 g/dL (12-16); IMMATURE GRANULOCYTES 0.3 % (0-5); LYMPHOCYTES 22.2 % (15-50); MCH 26.2 pg (26.0-34.0); MCHC 34.3 g/dL (31.0-37.0); MCV 76.4 fL (80.0-100.0); MEAN PLATELET VOLUME 9.4 fL (7.4-10.4); MONOCYTES 10.3 % (2-11); NEUTROPHILS 66.4 % (40-80); PLATELET COUNT 274 10x3/uL (130-400); RBC 4.88 10x6/uL (4.00-5.40); RDW 14.5 % (11.5-14.5); WBC 6.5 10x3/uL (4.8-10.8)
[2019-04-29 19:41] VITALS: BP 173/90
[2019-04-29 19:49] LABS: APTT 37.5 SECONDS (22.8-39.4); INR 0.97 (0.85-1.17); PROTIME 12.4 SECONDS (11.6-15.0)
--- NOTE | 2019-04-29 20:07 | NUR ---
PT IN CT AT THIS TIME.
[2019-04-29 20:17] LABS: ALBUMIN 3.7 g/dL (3.4-5.0); ALKALINE PHOSPHATASE 106 U/L (46-116); ALT (SGPT) 15 U/L (10-68); BILIRUBIN - TOTAL 0.37 mg/dL (0.2-1.3); CALC OSMOLALITY 258 mosm/kg (275-300); CALCIUM 9.6 mg/dL (8.5-10.1); CARBON DIOXIDE 22.6 mmol/L (21.0-32.0); CHLORIDE - SERUM 94 mmol/L (98-107); CREATININE - SERUM 0.7 mg/dL (0.6-1.3); GLUCOSE 80 mg/dL (74-106); POTASSIUM - SERUM 3.8 mmol/L (3.5-5.1); PROTEIN - SERUM 7.1 g/dL (6.4-8.2); SODIUM 130 mmol/L (136-145); UREA NITROGEN 9 mg/dL (7-18); eGFR NON AFRICAN AMERICAN 86 mL/min (90-120)
--- NOTE | 2019-04-29 20:22 | NUR ---
PT BACK FROM CT.
[2019-04-29 20:25] LABS: CREATINE KINASE 65 UL (21-215); MAGNESIUM - SERUM 1.7 mg/dL (1.8-2.4); PRO BNP 264 pg/mL (0-450); THYROID STIMULATING HORMONE 4.44 uIU/mL (0.36-3.74)
[2019-04-29 20:26] LABS: TROPONIN-I < 0.017 ng/mL (0.000-0.060)
[2019-04-29 20:30] VITALS: BP 165/109
--- NOTE | 2019-04-29 21:01 | NUR ---
URINE TO LAB AT THIS TIME.
[2019-04-29 21:15] VITALS: BP 143/61
[2019-04-29 21:24] LABS: APPEARANCE CLEAR (CLEAR); BILIRUBIN NEGATIVE (NEGATIVE); COLOR YELLOW (YELLOW); GLUCOSE NEGATIVE (NEGATIVE); KETONE MODERATE mg/dL (NEGATIVE); NITRITE NEGATIVE (NEGATIVE); PROTEIN NEGATIVE (NEGATIVE); UROBILINOGEN NORMAL (NORMAL)
[2019-04-29 21:28] LABS: UDS - AMPHET NEGATIVE QUAL (NEGATIVE); UDS - BARB NEGATIVE QUAL (NEGATIVE); UDS - BENZO NEGATIVE QUAL (NEGATIVE); UDS - COCAINE NEGATIVE QUAL (NEGATIVE); UDS - OPIATE POSITIVE QUAL (NEGATIVE); UDS - PCP NEGATIVE QUAL (NEGATIVE); UDS - THC NEGATIVE QUAL (NEGATIVE)
--- NOTE | 2019-04-29 22:06 | NUR ---
PT GOING TO ROOM 2102. REPORT CALLED TO [facility] ROOM DIRTY AT THIS TIME.
[2019-04-30] VITALS: BP 141/67
[2019-04-30] MEDS ORDERED: TESSALON PERLE100 MG PO (00:20)
[2019-04-30 00:22] VITALS: BP 141/67; Ht 162.6 cm; Wt 81.8 kg
[2019-04-30 01:32] LABS: CKMB 1.1 U/L (0.0-3.6); CREATINE KINASE 57 UL (21-215)
[2019-04-30 01:44] LABS: TROPONIN-I < 0.017 ng/mL (0.000-0.060)
[2019-04-30 04:00] VITALS: BP 168/64
[2019-04-30 06:03] LABS: BASOPHILS 0 % (0-2); EOSINOPHILS 1.4 % (0-7); HEMATOCRIT 36.4 % (36.0-48.0); HEMOGLOBIN 12.6 g/dL (12-16); IMMATURE GRANULOCYTES 0.2 % (0-5); LYMPHOCYTES 25.6 % (15-50); MCH 26.5 pg (26.0-34.0); MCHC 34.6 g/dL (31.0-37.0); MCV 76.5 fL (80.0-100.0); MEAN PLATELET VOLUME 9.5 fL (7.4-10.4); MONOCYTES 10.2 % (2-11); NEUTROPHILS 62.6 % (40-80); PLATELET COUNT 270 10x3/uL (130-400); RBC 4.76 10x6/uL (4.00-5.40); RDW 14.4 % (11.5-14.5)
[2019-04-30 06:06] LABS: WBC 4.4 10x3/uL (4.8-10.8)
[2019-04-30 06:42] LABS: CALC OSMOLALITY 259 mosm/kg (275-300); CHLORIDE - SERUM 95 mmol/L (98-107); CKMB 0.6 U/L (0.0-3.6); CREATINE KINASE 47 UL (21-215); CREATININE - SERUM 0.7 mg/dL (0.6-1.3); GLUCOSE 77 mg/dL (74-106); MAGNESIUM - SERUM 1.9 mg/dL (1.8-2.4); PHOSPHOROUS 3.2 mg/dL (2.5-4.9); POTASSIUM - SERUM 3.6 mmol/L (3.5-5.1); SODIUM 131 mmol/L (136-145); TROPONIN-I < 0.017 ng/mL (0.000-0.060); eGFR NON AFRICAN AMERICAN 86 mL/min (90-120)
[2019-04-30 06:43] LABS: UREA NITROGEN 6 mg/dL (7-18)
--- NOTE | 2019-04-30 07:20 | NUR ---
ALERT AND ORIENTED RESTING IN BED. UP WITH ASSIST. NO C/O PAIN. NO S/S OF ACUTE DISTRESS NOTED. FALL PRECAUTIONS IN PLACE. BRACE TO RIGHT WRIST. BRUISING TO LEFT SIDE OF EYE AND UNDER RIGHT EYE, BRUISING TO LEFT BENNETT AND KNEE. NO IV, UNABLE TO GAIN ACCESS. PT DENIES ANY NEEDS. CALL LIGHT IN REACH. WILL CONTINUE TO MONITOR.
[2019-04-30 08:41] VITALS: BP 170/68
--- NOTE | 2019-04-30 09:56 | NUR ---
Rehab Prescreening Consult recieved and the chart has been reviewed. She is [employer] managed Medicare which requires a preauth for the acute rehab. She does not have a qualifying rehab diagnosis at this time, but has a PT and OT eval pending. Will discuss with the CM Lewis Espinoza RN Clinical liaison, Rehab
--- NOTE | 2019-04-30 10:35 | NUR ---
I have reviewed this patient and I concur with the Shift Assessment completed by the Licensed Practical Nurse today this shift.
[2019-04-30 12:39] VITALS: BP 130/75
--- NOTE | 2019-04-30 13:35 | NUR ---
DISCHARGED PATIENT HOME WITH FAMILY VIA WHEELCHAIR. DISCONTINUED IV, CATHETER TIP INTACT. WENT OVER DISCHARGE INSTRUCTIONS WITH PATIENT, PATIENT VERBALIZED UNDERSTANDING. PT DENIES ANY NEEDS.
--- NOTE | 2019-04-30 15:09 | NUR ---
OT NOTE: PT OCMPLETED ADL MOB AND BED MOB WITH SBA. PT COMPLETED TOILETING WITH SBA. THANK YOU, ASHLEY DANIELS
--- NOTE | 2019-04-30 17:23 | MORECARE ---
CASE MANAGEMENT DISCHARGE SUMMARY PATIENT: LUI FISHER LOU UNIT: [id number] ADM DATE: 04/29/19 AGE: 73 : 43 SEX: F ROOM/BED: D.2103 AUTHOR: СЕРГЕЙ MUNGUIA PHYSICIAN: REFERRING PHYSICIAN: SHELLY CRUZ DO DATE OF SERVICE: 04/30/19 Discharge Plan Patient Name: LUI FISHER Facility: [facility]:[place] : 1945 Planned Disposition: Home with Home Health Anticipated Discharge Date: 04/30/19 Discharge Date: 04/30/2019 Expected LOS: 1 Initial Reviewer: [email or web address] Initial Review Date: 04/30/2019 Generated: 04/30/19 6:22 pm Coverage Notice Reviewer: [email or web address] Shyann Umanzor Notice Issued Date-Time: 04/30/2019 11:52 Notice Type: Medicare Outpatient Observation Notice Notice Delivered To: Patient Relationship to Patient: Self Sales Clerk Food Name: Delivery Method: HAND - Hand Delivered Delaney Days: Prior Verbal Notification: Recipient Understood Notice: Yes Recipient Signature: Yes Med Rec Note Co-signed by Attending: Coverage Notice Comment: Patient Name: LUI FISHER Page [phone] at 1723 All edits/amendments must be made on the electronic document DICTATION DATE: 04/30/191721 RN HOSPICE: [facility] 04/30/191721 RPT#: [id number] DC DATE:04/30/19 STATUS: DIS IN [place] [id number] [place] [address] END OF REPORT
--- NOTE | 2019-04-30 17:30 | MORECARE ---
CASE MANAGEMENT DISCHARGE SUMMARY PATIENT: LUI FISHERU UNIT: [id number] ADM DATE: 04/29/19 AGE: 73 : 43 SEX: F ROOM/BED: D.2103 AUTHOR: СЕРГЕЙ MUNGUIA PHYSICIAN: REFERRING PHYSICIAN: SHELLY CRUZ DO DATE OF SERVICE: 04/30/19 Discharge Plan Patient Name: LUI FISHER Facility: [facility]:[place] : 1945 Planned Disposition: Home with Home Health Anticipated Discharge Date: 04/30/19 Discharge Date: 04/30/2019 Expected LOS: 1 Initial Reviewer: JUSTIN Initial Review Date: 04/30/2019 Generated: 04/30/19 6:30 pm DCPIA - Discharge Planning Initial Assessment Updated by [email or web address]: Twan Vargas on 04/30/19 5:23 pm * Is the patient Alert and Oriented? Yes * How many steps to enter\exit or inside your home? NONE * PCP DR. CRUZ * Pharmacy [facility] IN [place] * Preadmission Environment Home Alone * ADLs Independent * Equipment Cane Nebulizer Oxygen Shower Chair Walker * Other Equipment HOME AND PORTABLE OXYGEN [facility] - PROVIDER * List name and contact numbers for known caregivers / representatives who currently or will assist patient after discharge: ALYSA FISHER, SPOUSE, * Verbal permission to speak to the caregivers and representatives has been obtained from the patient. Yes * Community resources currently utilized Home Health * Please name any agencies selected above. [facility] [place] * Additional services required to return to the preadmission environment? No * Can the patient safely return to the preadmission environment? Yes * Has this patient been hospitalized within the prior 30 days at any hospital? No External Providers External Provider: [facility] Next Contact Date: 04/30/2019 Service Request Date: Service Type: Resolution: Reviewer: Comments: Coverage Notice Reviewer: [email or web address] Shyann Umanzor Notice Issued Date-Time: 04/30/2019 11:52 Notice Type: Medicare Outpatient Observation Notice Notice Delivered To: Patient Relationship to Patient: Self Automatic Quilling Machine Operator Name: Delivery Method: HAND - Hand Delivered Delaney Days: Prior Verbal Notification: Recipient Understood Notice: Yes Recipient Signature: Yes Med Rec Note Co-signed by Attending: Coverage Notice Comment: Last DP export: 04/30/19 4:23 p Patient Name: LUI FISHER Page [id number] at 1730 All edits/amendments must be made on the electronic document DICTATION DATE: 04/30/191728 SUPER[employer]OR [employer]: [facility] 04/30/191728 RPT#: [id number] DC DATE:04/30/19 STATUS: DIS IN [facility] [address] [place] [address] END OF REPORT
--- NOTE | 2019-04-30 17:45 | MORECARE ---
CASE MANAGEMENT DISCHARGE SUMMARY PATIENT: LUI FISHERU UNIT: [id number] ADM DATE: 04/29/19 AGE: 73 : 41 SEX: F ROOM/BED: D.4333 AUTHOR: СЕРГЕЙ MUGNUIA PHYSICIAN: REFERRING PHYSICIAN: SHELLY CRUZ DO DATE OF SERVICE: 04/30/19 Discharge Plan Patient Name: LUI FISHER Facility: [facility]:[place] : 1945 Planned Disposition: Home with Home Health Anticipated Discharge Date: 04/30/19 Discharge Date: 04/30/2019 Expected LOS: 1 Initial Reviewer: JUSTIN Initial Review Date: 04/30/2019 Generated: 04/30/19 6:45 pm Comments DCP- Discharge Planning Updated by [email or web address]: Twan Vargas on 04/30/19 4:[address] Patient Name: LUI FISHER Admission Status: ER Accout number: [id number] Admission Date: 04-29-2019 : 1945 Admission Diagnosis: Attending: SHELLY CRUZ Current LOS: 1 Anticipated DC Date: 04-30-2019 Planned Disposition: Home with Home Health Primary Insurance: [employer] MEDICARE ADV PLANNED EXTERNAL PROVIDER: [facility] OFFICE Discharge Planning Comments: CM MET WITH PT AND SPOUSE IN ROOM TO DISCUSS DISCHARGE PLANNING AND NEEDS. LUI FISHER provided verbal consent to discuss current and ongoing needs with/in the presence of: SPOUSE, ALYSA. PT REPORTS LIVING AT HOME INDEPENDENTLY WITH HER SPOUSE. PT HAS NO HOME AND PORTABLE OXYGEN FROM [place], NEBULIZER, CANE, WALKER AND SHOWER CHAIR. PT HAS [facility]. CM DISCUSSED AVAILABILITY OF HOME HEALTH, REHAB SERVICES AND MEDICAL EQUIPMENT. PT DENIES DISCHARGE NEEDS OTHER THAN HOME HEALTH RESUMPTION, REPORTS HER SPOUSE IS HER TO PICK HER UP FOR DISCHARGE HOME. CHOICE SIGNED FOR [facility]. CM FAXED DISCHARGE AND CHART INFORMATION TO [facility] IN [place] AT [phone] FOR RESUMPTION OF HOME HEALTH CARE. Pierogi Maker: Twan Vargas DCPIA - Discharge Planning Initial Assessment Updated by [email or web address]: Twan Vargas on 04/30/19 5:23 pm * Is the patient Alert and Oriented? Yes * How many steps to enter\exit or inside your home? NONE * PCP DR. CRUZ * [facility] IN [place] * Preadmission Environment Home Alone * ADLs Independent * Equipment Cane Nebulizer Oxygen Shower Chair Walker * Other Equipment HOME AND PORTABLE OXYGEN [facility] - PROVIDER * List name and contact numbers for known caregivers / representatives who currently or will assist patient after discharge: ALYSA FISHER, SPOUSE, * Verbal permission to speak to the caregivers and representatives has been obtained from the patient. Yes * Community resources currently utilized Home Health * Please name any agencies selected above. [facility] IN [place] * Additional services required to return to the preadmission environment? No * Can the patient safely return to the preadmission environment? Yes * Has this patient been hospitalized within the prior 30 days at any hospital? 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: Reheat Furnace Operator Name: Delivery Method: HAND - Hand Delivered Delaney Days: Prior Verbal Notification: Recipient Understood Notice: Yes Recipient Signature: Yes Med Rec Note Co-signed by Attending: Coverage Notice Comment: [facility] Last DP export: 04/30/19 4:30 p Patient Name: LUI FISHER Page [id number] at 1745 All edits/amendments must be made on the electronic document DICTATION DATE: 04/30/191744 BRAND AMBASSADOR PROMOTIONAL MODEL: EZIO 04/30/191744 RPT#: [id number] DC DATE:04/30/19 STATUS: DIS IN [facility] [address] [place] [address] END OF REPORT
--- NOTE | 2019-05-06 11:09 | CN ---
PATIENT NAME:LUI FISHER MEDICAL RECORD: [id number] : 41 LOCATION:D.M2 D.2103 ADMIT DATE: 04/29/19 ACCOUNT: [id number] CONSULTING PHYSICIAN: EDIS FLORENTINO MD REFERRING PHYSICIAN: SHELLY CRUZ DO DATE OF CONSULTATION: 04/30/2019 CARDIOLOGY CONSULT DIAGNOSIS: Syncope. HISTORY OF PRESENT ILLNESS: Ms. Fisher presents with an episode of syncope. She has had a cardiac catheterization this year that was normal. She has had an echocardiogram in the past that was normal. Her telemetry is normal. Her EKG is normal. Troponin is normal. She has had no chest pain or chest discomfort. PHYSICAL EXAMINATION: CONSTITUTIONAL/GENERAL APPEARANCE: Well nourished, well developed, appears stated age. EYES: Lids and conjunctivae noninjected. No discharge. No pallor. ENT: Lips within normal limit. No cyanosis. No pallor. NECK: Carotid arteries, bilateral normal upstroke. No bruits. No thrills. No jugular venous pressure or distention. CERVICAL LYMPH NODES: Nontender. Nonenlarged. THYROID: Not enlarged. No nodules. CARDIOVASCULAR: Precordial exam, nondisplaced. No heaves or pericardial thrills. Rate and rhythm, regular. Heart sounds, normal S1, normal S2. No S3, no gallop, no rub. Systolic murmur, not heard. Diastolic murmur, not heard. RESPIRATORY: Respiratory effort, unlabored. Normal curvature. No thoracic deformity. No chest wall tenderness. Percussion, resonant. Auscultation, clear. No wheezes, no rales, no rhonchi. ABDOMEN: Soft, nondistended, nontender. No abdominal pain, no vomiting and normal appetite. MUSCULOSKELETAL: No joint tenderness, normal gait, normal tone. SKIN: Warm and dry. OVERALL IMPRESSION: Syncope, no reason to believe this is cardiac in nature. No dysrhythmia, normal echocardiogram, normal cardiac catheterization, normal EKG, normal troponin, no other cardiac workup or treatment is necessary. TRANSINT:[id number] Voice Confirmation ID: [id number] DOCUMENT ID: [id number] EDIS FLORENTINO MD at 1109 CC: [id number] DICTATION DATE: 04/30/19 1229 [employer]: 04/30/19 1235 DIS IN 04/30/19 [address] [place] [address]
== END 2019-04-30 13:36 | disposition home or self-care (01) ==
LOC: D.ER 18:16 → OBSVTIME 21:50 → D.M2 21:50
PROVIDERS: Family Medicine; ADMIT Family Medicine; ATTEND Family Medicine
DX: R55 Syncope and collapse (principal); J44.9 Chronic obstructive pulmonary disease, unspecified; K21.9 Gastro-esophageal reflux disease without esophagitis; I10 Essential (primary) hypertension; E83.42 Hypomagnesemia; E87.8 Other disorders of electrolyte and fluid balance, not elsewhere classified; S80.02XA Contusion of left knee, initial encounter; S00.83XA Contusion of other part of head, initial encounter; W19.XXXA Unspecified fall, initial encounter

== ENCOUNTER → 2019-05-09 08:32 | Outpatient (CLI) | payer MEDICARE, MEDICAID ==
[2019-04-30 00:22] VITALS: BMI 30.9
[~2019-05-09 08:32] MED LIST changes: +ROPINIROLE HCL2 MG PO
== END | disposition home or self-care (01) ==
LOC: D.NM 08:32
PROVIDERS: ATTEND Family Medicine
DX: M88.0 Osteitis deformans of skull (principal)

== ENCOUNTER 2019-05-15 08:00 | Outpatient (CLI) | payer MEDICARE, MEDICAID ==
[2019-04-30 00:22] VITALS: BMI 30.9
== END 2019-05-15 23:59 | disposition home or self-care (01) ==
LOC: D.MAMMO 08:00
PROVIDERS: ATTEND Family Medicine
DX: Z12.31 Encounter for screening mammogram for malignant neoplasm of breast (principal)

== ENCOUNTER → 2019-06-02 13:28 | Outpatient (CLI) | payer MEDICARE, MEDICAID ==
[2019-04-30 00:22] VITALS: BMI 30.9
[2019-06-02 14:45] LABS: ERYTHROCYTE SEDIMENTATION RATE 15 mm/hr (0-30)
[2019-06-02 14:47] LABS: HEMATOCRIT 35.7 % (36.0-48.0); HEMOGLOBIN 11.2 g/dL (12-16); LYMPHOCYTES 30.6 % (15-50); MCH 25.5 pg (26.0-34.0); MCHC 31.4 g/dL (31.0-37.0); MCV 81.1 fL (80.0-100.0); MEAN PLATELET VOLUME 10.8 fL (7.4-10.4); NEUTROPHILS 59.9 % (40-80); PLATELET COUNT 256 10x3/uL (130-400); RDW 14.6 % (11.5-14.5); WBC 6.3 10x3/uL (4.8-10.8)
== END | disposition home or self-care (01) ==
LOC: D.LABREF 13:28
PROVIDERS: ATTEND Orthopaedic Surgery
DX: M17.11 Unilateral primary osteoarthritis, right knee (principal)

== ENCOUNTER 2019-09-22 13:19 | Emergency (ER) | payer MEDICARE, MEDICAID ==
[~2019-09-22] VITALS: Ht 162.6 cm; Wt 81.8 kg
[2019-09-22 13:26] VITALS: BP 100/62; Ht 162.6 cm; Wt 81.8 kg
[2019-09-22] MEDS ORDERED: HYDROCORTISO28.35 G1 TOPICAL (16:08)
[2019-09-22] MEDS ORDERED: VISTARIL25 MG PO (16:08)
== END 2019-09-22 17:30 | disposition home or self-care (01) ==
LOC: D.ER 13:19
DX: K64.4 Residual hemorrhoidal skin tags (principal); G47.00 Insomnia, unspecified; F41.8 Other specified anxiety disorders; F10.129 Alcohol abuse with intoxication, unspecified; Y90.9 Presence of alcohol in blood, level not specified; I10 Essential (primary) hypertension; J44.9 Chronic obstructive pulmonary disease, unspecified; K21.9 Gastro-esophageal reflux disease without esophagitis

== ENCOUNTER 2019-10-04 11:18 | Emergency (ER) | payer MEDICARE, MEDICAID ==
[~2019-10-04 11:18] MED LIST changes: +HYDROCORTISO28.35 G1 TOPICAL; +VISTARIL25 MG PO
[2019-10-04 11:21] VITALS: Ht 162.6 cm
[2019-10-04 12:08] LABS: UDS - AMPHET NEGATIVE QUAL (NEGATIVE); UDS - BARB NEGATIVE QUAL (NEGATIVE); UDS - BENZO NEGATIVE QUAL (NEGATIVE); UDS - COCAINE NEGATIVE QUAL (NEGATIVE); UDS - OPIATE NEGATIVE QUAL (NEGATIVE); UDS - PCP NEGATIVE QUAL (NEGATIVE); UDS - THC NEGATIVE QUAL (NEGATIVE)
[2019-10-04 12:10] LABS: BASOPHILS 0.1 % (0-2); EOSINOPHILS 0.1 % (0-7); HEMOGLOBIN 13.7 g/dL (12-16); IMMATURE GRANULOCYTES 0.2 % (0-5); MCH 26.4 pg (26.0-34.0); MCHC 33.4 g/dL (31.0-37.0); MEAN PLATELET VOLUME 9.7 fL (7.4-10.4); MONOCYTES 6.3 % (2-11); NEUTROPHILS 79.3 % (40-80); RBC 5.19 10x6/uL (4.00-5.40); RDW 14.9 % (11.5-14.5); WBC 8.6 10x3/uL (4.8-10.8)
[2019-10-04 12:13] LABS: APPEARANCE CLEAR (CLEAR); BILIRUBIN NEGATIVE (NEGATIVE); COLOR YELLOW (YELLOW); GLUCOSE NEGATIVE (NEGATIVE); KETONE LARGE mg/dL (NEGATIVE); NITRITE NEGATIVE (NEGATIVE); PROTEIN NEGATIVE (NEGATIVE); UROBILINOGEN NORMAL (NORMAL)
[2019-10-04 12:13] LABS: PLATELET COUNT 342 10x3/uL (130-400)
[2019-10-04 12:15] LABS: AMORPHOUS SEDIMENT >1+ /lpf (NONE SEEN); BACTERIA MANY /hpf (NEGATIVE); GRANULAR CAST OCC /lpf (NONE SEEN); HYALINE CAST 0-5 /lpf (NONE SEEN); MUCUS >1+ /lpf (NONE SEEN); RED CELLS - URINE 0-5 /hpf (0-5)
[2019-10-04 12:21] LABS: CALC OSMOLALITY 275 mosm/kg (275-300); CALCIUM 9.6 mg/dL (8.5-10.1); CARBON DIOXIDE 26.8 mmol/L (21.0-32.0); CHLORIDE - SERUM 99 mmol/L (98-107); CREATININE - SERUM 0.6 mg/dL (0.6-1.3); GLUCOSE 104 mg/dL (74-106); SODIUM 138 mmol/L (136-145); UREA NITROGEN 13 mg/dL (7-18); eGFR NON AFRICAN AMERICAN > 90 mL/min (90-120)
[2019-10-04 12:26] LABS: ALBUMIN 3.6 g/dL (3.4-5.0); ALKALINE PHOSPHATASE 101 U/L (30-120); ALT (SGPT) 24 U/L (10-68); MAGNESIUM - SERUM 2.2 mg/dL (1.8-2.4)
[2019-10-04] MEDS ORDERED: KEFLEX500 MG PO (12:58)
[2019-10-04] MEDS ORDERED: MACROBID100 MG PO (12:58)
[2019-10-04 13:55] VITALS: BP 142/78
== END 2019-10-04 13:56 | disposition home or self-care (01) ==
LOC: D.ER 11:18
PROVIDERS: Family Medicine
DX: N39.0 Urinary tract infection, site not specified (principal); E87.6 Hypokalemia; F41.9 Anxiety disorder, unspecified; I10 Essential (primary) hypertension; J44.9 Chronic obstructive pulmonary disease, unspecified; K21.9 Gastro-esophageal reflux disease without esophagitis